=== PATIENT | female | born 1950 | race Caucasian/White ===

== ENCOUNTER 2022-11-06 05:02 | Inpatient (IN) ==
[2022-10-30 16:58] LABS: Basophils # (Auto) 0.07 K/mcL (0.00-0.30); Basophils % (Auto) 0.8 % (0.0-2.0); Eosinophils # (Auto) 0.07 K/mcL (0.00-0.70); Eosinophils % (Auto) 0.8 % (0.0-7.0); Hematocrit 40.7 % (34.1-44.9); Hemoglobin 13.4 g/dL (11.2-15.7); Lymphocytes # (Auto) 1.92 K/mcL (1.50-4.80); Lymphocytes % (Auto) 22.7 % (15.5-49.0); Mean Cell Volume 98.1 fL (80.0-100.0); Mean Corpuscular HGB Conc 32.9 g/dL (31.0-36.0); Mean Platelet Volume 10.7 fL (8.8-12.5); Monocytes # (Auto) 0.66 K/mcL (0.10-0.90); Monocytes % (Auto) 7.8 % (1.0-12.0); Neutrophils % (Auto) 67.5 % (38.0-78.0); Platelet Count 259 K/mcL (140-440); RBC 4.15 M/mcL (3.59-5.38); Red Cell Distribution Width 11.9 % (11.5-14.5); WBC 8.5 K/mcL (4.5-11.0)
[2022-10-30 17:03] LABS: INR 0.9 (0.9-1.1); Prothrombin Time 12.5 sec (11.9-14.5)
[2022-10-30 20:04] LABS: Appearance,Urine CLEAR (Clear); Bilirubin,Urine Negative (Negative); Color,Urine YELLOW; Culture Indicated,Urine No; Glucose,Urine (UA) Negative (Negative); Ketones,Urine 5 mg/dL (Negative); Leukocyte Esterase,Urine 25 /uL (Negative); Nitrate,Urine Negative (Negative); Protein,Urine Negative (Negative); Specific Gravity,Urine 1.017 (1.000-1.035); Urine Blood Negative (Negative); Urine RBC 1 /hpf (0-3); Urine Squamous Epithelial Cell 4 /hpf (0-4); Urine WBC 9 /hpf (0-4); Urobilinogen,Urine Negative
[2022-10-30 20:30] LABS: ALT/SGPT 12 U/L (<40); AST/SGOT 27 U/L (<32); Albumin 4.8 gm/dL (3.2-5.2); Albumin/Globulin Ratio 1.7 (1.0-2.3); Alkaline Phosphatase 75 U/L (39-117); Bilirubin,Total 0.4 mg/dL (0.1-1.0); Blood Urea Nitrogen 17 mg/dL (8-23); Calcium 10.8 mg/dL (8.6-10.4); Carbon Dioxide 23 mmol/L (22-30); Chloride 99 mmol/L (96-108); Globulin 2.8 gm/dL (2.2-3.7); Glomerular Filtration Rate 90; Glucose 85 mg/dL (70-105)
--- NOTE | 2022-11-05 19:07 | EKG ---
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
[~2022-11-06 05:02] MED LIST: 0.9 % SODIUM CHLORIDE 250 ML IV SCH; IPRATROPIUM/ALBUTEROL 3 ML AMPUL.NEB NEB PRN; SCOPOLAMINE 1 PATCH PATCH TOPICAL PRN
[2022-11-06] MEDS ORDERED: ceFAZolin 2 GM in DEXTROSE 5% IN WATER 50 ML IV SCH (06:00)
[2022-11-06] MEDS ORDERED: ONDANSETRON 4 MG/2 ML VIAL ONE (07:30)
[2022-11-06] MEDS ORDERED: ePHEDrine 50 MG/5 ML SYRINGE (ANEST) IV ONE (07:30)
[2022-11-06] MEDS ORDERED: SUCCINYLCHOLINE 20 MG/ML ML IV ONE (07:30)
[2022-11-06] MEDS ORDERED: TRANEXAMIC ACID 1,000 MG/10 ML VIAL ONE (07:30)
[2022-11-06] MEDS ORDERED: KETAMINE 50 MG/ML Syringe (ANEST) IV ONE (07:30)
[2022-11-06] MEDS ORDERED: GLYCOPYRROLATE 0.2 MG/ML VIAL IV ONE (07:30)
[2022-11-06] MEDS ORDERED: MIDAZOLAM 2 MG/2 ML VIAL ONE (07:30)
[2022-11-06] MEDS ORDERED: PHENYLephrine 1 MG/10 ML SYRINGE (ANEST) ONE (07:30)
[2022-11-06] MEDS ORDERED: MAGNESIUM SULFATE 2 GM/50 ML BAG IV ONE (07:30)
[2022-11-06] MEDS ORDERED: fentaNYL 250 MCG/5 ML VIAL IV ONE (07:30)
[2022-11-06] MEDS ORDERED: LIDOCAINE HCL/PF 100 MG/5 ML SYRINGE IV ONE (07:30)
[2022-11-06] MEDS ORDERED: HYDROmorphone 1 MG/ML SYRINGE ONE (07:30)
[2022-11-06] MEDS ORDERED: PROPOFOL 200 MG/20 ML VIAL IV ONE (07:30)
[2022-11-06] MEDS ORDERED: ceFAZolin 2 GM VIAL ONE (07:30)
[2022-11-06] MEDS ORDERED: DEXAMETHASONE 10 MG/ML VIAL ONE (07:30)
[2022-11-06] MEDS ORDERED: THROMBIN (BOVINE) 5,000 UNIT VIAL TOPICAL ONE (10:22)
[2022-11-06] MEDS ORDERED: GELATIN SPONGE,ABSORBABLE 1 EACH SPONGE TOPICAL ONE (12:39)
[2022-11-06] MEDS ORDERED: fentaNYL 100 MCG/2 ML VIAL IV PRN (12:41)
[2022-11-06] MEDS ORDERED: IPRATROPIUM/ALBUTEROL 3 ML AMPUL.NEB NEB PRN (12:41)
[2022-11-06] MEDS ORDERED: MEPERIDINE 25 MG/ML VIAL IV PRN (12:41)
[2022-11-06] MEDS ORDERED: METHOCARBAMOL 1,000 MG/10 ML VIAL IV PRN ×2 (12:41→13:05)
[2022-11-06] MEDS ORDERED: ONDANSETRON 4 MG/2 ML VIAL IV PRN ×2 (12:41→13:05)
[2022-11-06] MEDS ORDERED: ACETAMINOPHEN 1,000 MG/100 ML BAG IV ONE (12:41)
[2022-11-06] MEDS ORDERED: VANCOMYCIN 1 GM VIAL TOPICAL SCH (12:45)
--- NOTE | 2022-11-06 12:45 | XRay Report ---
HISTORY: FINDINGS: IMPRESSION: 1.5 minutes of fluoroscopy time was used. Interpreted and Authenticated by: Bi Anaya 11/06/22
[2022-11-06] MEDS ORDERED: BUPIVACAINE 0.25% 50 ML VIAL IJ ONE (12:53)
--- NOTE | 2022-11-06 13:02 | Brief Operative Note ---
Brief Operative Note Date of procedure: 11/06/22 Pre-op diagnosis: stenosis with instability Post-op diagnosis: same Procedure: xlif with posterior L4-S1 Grafts/Implants: Yes Anesthesia: GETA Findings: stenosis Complications: none Surgeon: Didier Colon Plant Taxonomy Teacher: Walter Xiong Estimated blood loss (cc): 200 Specimens Removed/Pathology: none sent Condition: stable Disposition: PACU
[2022-11-06] MEDS ORDERED: PROMETHAZINE 25 MG/ML VIAL IV PRN (13:05)
[2022-11-06] MEDS ORDERED: ONDANSETRON 4 MG ODT TABLET SL PRN (13:05)
[2022-11-06] MEDS ORDERED: HYDROmorphone 2 MG TABLET PO PRN (13:05)
[2022-11-06] MEDS ORDERED: HYDROmorphone 1 MG/ML SYRINGE IV PRN (13:05)
[2022-11-06] MEDS ORDERED: TESTOSTERONE 100 MG SUB-Q SCH (13:15)
[2022-11-06] MEDS: 0.9 % SODIUM CHLORIDE 1,000 ML IV SCH (14:52)
[2022-11-06] MEDS: 0.9 % SODIUM CHLORIDE 10 ML SYRINGE IV SCH ×2 (14:53→21:02)
[2022-11-06] MEDS ORDERED: ACETAMINOPHEN 500 MG TABLET PO SCH (15:00)
[2022-11-06] MEDS: ceFAZolin 1 GM VIAL IV SCH (15:43)
[2022-11-06] MEDS: ACETAMINOPHEN 325 MG TABLET PO SCH ×2 (16:08→21:04)
[2022-11-06] MEDS: traMADol 50 MG TABLET PO PRN ×2 (16:12→21:13)
[2022-11-06] MEDS: FERROUS GLUCONATE 324 MG TABLET PO SCH (17:27)
[2022-11-06] MEDS ORDERED: IBUPROFEN 200 MG TABLET PO SCH (21:00)
[2022-11-06] MEDS: GABAPENTIN 300 MG CAPSULE PO SCH (21:02)
[2022-11-06] MEDS: SENNOSIDES 1 TABLET PO SCH (21:02)
[2022-11-06] MEDS: DOCUSATE SODIUM 100 MG CAPSULE PO SCH (21:02)
[2022-11-06] MEDS: Progesterone Micronized 200 mg capsule PO SCH (21:07)
[2022-11-07] MEDS: ceFAZolin 1 GM VIAL IV SCH (00:10)
[2022-11-07] MEDS: 0.9 % SODIUM CHLORIDE 1,000 ML IV SCH ×2 (00:11→15:26)
[2022-11-07] MEDS: traMADol 50 MG TABLET PO PRN (03:54)
[2022-11-07] MEDS: BENZOCAINE/MENTHOL 1 LOZENGE PO PRN ×2 (03:59→20:43)
[2022-11-07] MEDS: 0.9 % SODIUM CHLORIDE 10 ML SYRINGE IV SCH ×3 (04:03→20:48)
[2022-11-07 06:35] LABS: Hemoglobin 10.2 g/dL (11.2-15.7)
[2022-11-07 06:57] LABS: Blood Urea Nitrogen 8 mg/dL (8-23); Calcium 9.1 mg/dL (8.6-10.4); Carbon Dioxide 27 mmol/L (22-30); Chloride 106 mmol/L (96-108); Glomerular Filtration Rate 90; Glucose 99 mg/dL (70-105); Hematocrit 31.2 % (34.1-44.9)
--- NOTE | 2022-11-07 07:14 | Operative Note ---
DATE OF OPERATION: 11/06/2022 DATE OF PROCEDURE: 11/06/2022 PREOPERATIVE DIAGNOSIS: Lumbar stenosis with instability, L4-L5, L5-S1; she has a transitional level S1, S2. POSTOPERATIVE DIAGNOSIS: Lumbar stenosis with instability, L4-L5, L5-S1; transitional level S1, S2. OPERATION PROPOSED: 1. Anterior interbody fusion with application of prosthetic device interbody space at L4-5. 2. Lumbar decompression with decompression of central canal, lateral recess, and neural foramen at L4-L5, L5-S1. 3. Posterior segmental instrumentation using a [employer] pedicle screw construct L4 through S1 with connection to the pelvis. 4. Posterior/posterolateral fusion, L4-L5, L5-S1. 5. Application of prosthetic device interbody space and interbody fusion, L5-S1. OPERATION PERFORMED: Same. SURGEON: Didier Colon M.D. BODY FITTER: Walter Xiong PA-C. This providers expertise and technical skill were required throughout the case. The SIMONA assisted with preoperative coordination, intraoperative retraction, wound closure, and dressing and splint application, as well as postoperative documentation and care coordination. INDICATIONS: This is a lady who has had ongoing claudication/radicular symptoms. She has stenosis and instability, L4-L5, L5-S1 and we have elected to proceed with lumbar decompression. OPERATION IN DETAIL: Informed consent was obtained. She was taken to the operating room with appropriate anesthetic and prophylactic antibiotics. She was carefully positioned. Her left flank was prepped sterilely. A standard retroperitoneal approach to the L4-5 interspace was performed. I advanced through the psoas using an EMG monitor trocar. I sequentially dilated and placed a self-retaining retractor. I incised the annulus. I extensively curetted the disc space and debrided down to subchondral bone. I then used a variety of trials and selected a 10 x 45 x 22 XLIF cage from [employer]. I then impacted this cage into the site prepared for it. The patient was repositioned. A midline incision was made. I dissected down to expose spinous process and lamina L4 through S1. I removed the inferior one-half of the spinous process lamina of L4, the central portion of L5, the superior portion of S1. I debrided the hypertrophied medial border of the facet joint as well as the hypertrophied ligamentum flavum. At the end of the decompression, the central canal, lateral recess, and opening the neural foramen were very adequately patent L4 through S1. Pedicle screws were placed at L4, L5, S1 bilaterally. I placed a left sided S2AI screw but because of our operative table and the position of our fluoroscopy, we were unable to visualize well the right side. I elected to simply place this on one side as a prophylaxis against a sacral fracture. I then formed the application for the prosthetic device interbody space and interbody fusion. This was done by mobilizing the nerve root towards the midline. I extensively curetted the disc space, debrided down to subchondral bone, filled the disc space with morselized bone graft and placed an expandable cage L5-S1. Attention was then turned to the posterior and posterolateral aspect of the spine where it decorticated the posterolateral aspect of the spine. I packed morcellized graft into and against the decorticated posterolateral aspect of the spine to allow for fusion. The procedure was completed by compressing across the interbody graft and tightened and torqued the sally into the top-loading pedicle screws. The wounds were closed over a deep drain with an 0 Vicryl in interrupted fashion, 2-0 Vicryl inverted deep dermal and running subcuticular. Procedure was tolerated well. No complications. ESTIMATED BLOOD LOSS: 200 mL. GDD:ria Job ID: [id number] Doc ID: [id number] Didier Colon MD
[2022-11-07] MEDS ORDERED: KETOROLAC 15 MG/ML VIAL IV SCH (07:45)
--- NOTE | 2022-11-07 07:46 | General Surgery Progress Note ---
SUBJECTIVE Subjective Patient information: Note initiated : 11/07/22 at 7:42 am Service Date, if different from initiated Date: [] Patient: Vicky Sandoval 72 y/o F admitted on 11/06/22 for Extreme Lateral Interbody Fusion L4-5 with. Chief Complaint: [] Principal diagnosis: lumbar instability Interval history: no new issues Constitutional Vitals: Vital Signs Temp Pulse Resp BP Pulse Ox O2 Del Method O2 Flow Rate 97.5 F 81 18 118/64 100 Room Air 4 11/07/22 04:12 11/07/22 04:12 11/07/22 04:12 11/07/22 04:12 11/07/22 04:12 11/07/22 04:12 11/06/22 13:39 Period Temp Pulse Resp BP Sys/Byrd Pulse Ox O2 Del Method O2 Flow Rate Last 24 Hr 96.8 F-98.4 F 59-100 9-19 96-144/44-102 91-100 Nasal Cannula- Room Air 4-10 Intake and Output 11/06/22 11/07/22 11/07/22 19:59 03:59 11:59 Intake Total 2345 1060 Output Total 038 350 6054 Balance 1495 -125 -1710 Weight 114 lb 4 oz Intake & Output: Intake & Output 11/06/22 11/07/22 11/07/22 19:59 03:59 11:59 Intake Total 2345 1060 Output Total 885 387 6202 Balance 1495 -125 -1710 Weight 114 lb 4 oz Intake: IV 445 Sodium Chloride 0.9% 1,000 ml @ 345 100 mls/hr IV .Q10H [facility] Rx#: [id number] Oral 1060 IV - Manual Only 1900 Output: Drainage 125 35 Lower Back ROCIO Drain 125 35 Drainage 50 35 Lower Back ROCIO Drain 50 35 Urine Catheter Amount 300 Void Amount 300 2700 Estimated Blood Loss 200 Other: Meal Dinner Percent of Meal Consumed 10 Urine Appearance Clear Clear Urine Color Dark Yellow Pale Urine Odor Strong Normal Extremities Exam Extremities exam: Present neurovascular intact A/P Assessment and plan (1) Lumbar spondylosis: Plan: mobilize Status: Chronic Comment: post fusion (2) Lumbar radiculopathy: Status: Chronic Sepsis Sepsis Identified: No Narrative A/P Narrative: no acute issues post fusion Plan of Treatment: mbilize Time Spent With Patient Time: Total time spent is greater than 50% in coordination of care (as documented) at patient's floor/unit and/or counseling patient: Subsequent: Total time with patient: Less than 25 minutes Critical Care Time: No
[2022-11-07] MEDS ORDERED: IBUPROFEN 200 MG TABLET PO PRN (07:57)
[2022-11-07] MEDS ORDERED: GLUCOSAM CHON MSM1 C MANG BOSW PO SCH (09:00)
[2022-11-07] MEDS: ACETAMINOPHEN 325 MG TABLET PO SCH ×3 (09:14→20:44)
[2022-11-07] MEDS: valACYclovir 500 MG TABLET PO SCH (09:15)
[2022-11-07] MEDS: ESTRADIOL 1 MG TABLET PO SCH (09:15)
[2022-11-07] MEDS: METHOCARBAMOL 750 MG TABLET PO SCH ×3 (09:16→20:43)
[2022-11-07] MEDS: DOCUSATE SODIUM 100 MG CAPSULE PO SCH ×2 (09:16→20:44)
[2022-11-07] MEDS: LOSARTAN 50 MG TABLET PO SCH (09:16)
[2022-11-07] MEDS: FERROUS GLUCONATE 324 MG TABLET PO SCH (15:26)
[2022-11-07] MEDS ORDERED: IRON PO SCH (17:00)
[2022-11-07] MEDS: Progesterone Micronized 200 mg capsule PO SCH ×2 (19:52→20:47)
[2022-11-07] MEDS: GABAPENTIN 300 MG CAPSULE PO SCH (20:43)
[2022-11-07] MEDS: SENNOSIDES 1 TABLET PO SCH (20:47)
[2022-11-08] MEDS: METHOCARBAMOL 750 MG TABLET PO SCH ×2 (03:24→09:00)
[2022-11-08] MEDS: traMADol 50 MG TABLET PO PRN ×2 (03:32→07:30)
[2022-11-08] MEDS: 0.9 % SODIUM CHLORIDE 10 ML SYRINGE IV SCH (04:04)
--- NOTE | 2022-11-08 07:03 | Discharge Summary ---
Discharge Provider Provider IMPORTANT FOLLOW-UP INFORMATION FOR PCP: Patient information: Note initiated : 11/08/22 at 7:01 am Service Date, if different from initiated Date: [] Patient: Vicky Sandoval 72 y/o F admitted on 11/06/22 for Extreme Lateral Interbody Fusion L4-5 with. Chief Complaint: [] Date of admission: 11/06/22 05:02 Discharge date: 11/08/22 Primary care physician: Eduard Church Admitting clinician: Didier Colon COURSE Hospital Course Hospital course: lumbar fusion A and P- uneventful Discharge diagnosis: stenosis with instability Procedures: lumbar fusion Time Spent with Patient Time attestation: Total time spent providing and/or coordinating discharge services: Time spent: Greater than 30 minutes Physical Examination Exam Clean and dry: Yes Discharge Instructions - Spine Patient Instructions Spine Protocol: Limit bending and stooping. No heavy lifting. Wear brace/collar at all times except when showering and sleeping. Additional Dressing Instructions: May Shower 48 hours post-operative and replace with dry dressing after shower. Discharge Plan Patient/Caregiver Discharge Instructions Activity: ambulate only with your walker and increase activity as tolerated Diet: Regular Diet Prescriptions: New tramadol 50 mg Tablet 50 mg PO Q4-6HP PRN (Reason: Pain) Qty: 50 0RF methocarbamol 750 mg Tablet 750 mg PO Q6H 30 Days Qty: 120 0RF No Action losartan 100 mg tablet 100 mg PO QDAY 90 Days Qty: 90 3RF progesterone micronized 200 mg capsule 200 mg PO QHS Qty: 90 1RF gabapentin 300 mg capsule 300 mg PO QHS Qty: 30 0RF tramadol 50 mg tablet 50 mg PO Q4-6H PRN (Reason: pain) Qty: 30 0RF Patient Comments: PT DOES NOT TAKE THIS MEDICATION. acyclovir 400 mg tablet 400 mg PO QDAY ibuprofen 200 mg tablet 400 mg PO BID Patient Comments: HOLDING FOR SURGERY acetaminophen 500 mg Tablet 650 mg PO TID ferrous gluconate 324 mg (38 mg iron) Tablet 324 mg PO BIDCC Osteo Bi-Flex Triple Strength 750 mg-644 mg- 30 mg-1 mg Tablet 3 tab PO DAILY estradiol 1 mg tablet 2 mg PO QDAY testosterone 100 mg Pellet 100 mg SUBCUT ONCE Patient Comments: EVERY 3 MONTHS Rx Instructions: as a single dose Follow Up Plan Follow up with: Didier Colon MD [Physician] - 11/23/22 9:10 am Patient Disposition: Home, Self-Care Plan of Treatment: juvenal Overall status at discharge: patient is progressing back to baseline Discharge Orders: Discharge Order (Routine); Ordered 11/08/22 Ordered By: Didier Colon Pending Pending Pending: Resuscitation Status Resuscitate (Full Code) Diet Regular Diet Start SunNovember 06 130 Acetaminophen (Acetaminophen 325 Mg Tablet) 650 mg PO TID [facility]; Protocol Last Admin: 11/07/22 20:44 Dose: 650 mg Documented By: Admin: 11/07/22 15:30 Dose: 650 mg Documented By: Admin: 11/07/22 09:14 Dose: 650 mg Documented By: Admin: 11/06/22 21:04 Dose: 650 mg Documented By: Admin: 11/06/22 16:08 Dose: 650 mg Documented By: SANDRA Docusate Sodium (Docusate Sodium 100 Mg Capsule) 100 mg PO BID [facility] Last Admin: 11/07/22 20:44 Dose: 100 mg Documented By: Admin: 11/07/22 09:16 Dose: 100 mg Documented By: Admin: 11/06/22 21:02 Dose: 100 mg Documented By: DEBBI Estradiol (Estradiol 1 Mg Tablet) 2 mg PO QDAY [facility] Last Admin: 11/07/22 09:15 Dose: 2 mg Documented By: AMANDA Gabapentin (Gabapentin 300 Mg Capsule) 300 mg PO QHS [facility] Last Admin: 11/07/22 20:43 Dose: 300 mg Documented By: Admin: 11/06/22 21:02 Dose: 300 mg Documented By: DEBBI Losartan Potassium (Losartan 50 Mg Tablet) 100 mg PO DAILY [facility] Last Admin: 11/07/22 09:16 Dose: 100 mg Documented By: AMANDA Methocarbamol (Methocarbamol 750 Mg Tablet) 750 mg PO Q6H [facility] Last Admin: 11/08/22 03:24 Dose: 750 mg Documented By: Admin: 11/07/22 20:43 Dose: 750 mg Documented By: Admin: 11/07/22 15:31 Dose: 750 mg Documented By: Admin: 11/07/22 09:16 Dose: 750 mg Documented By: AMANDA Progesterone Micronized 200 Mg Capsule 1 dose PO QHS [facility] Last Admin: 11/07/22 20:47 Dose: 1 dose Documented By: Admin: 11/06/22 21:07 Dose: Not Given Documented By: DEBBI Iron 22mg 1 dose PO 1700 [facility] Last Admin: 11/07/22 18:48 Dose: 1 dose Documented By: DEBBI Senna (Sennosides 1 Tablet) 2 tab PO HS [facility] Last Admin: 11/07/22 20:47 Dose: Not Given Documented By: Admin: 11/06/22 21:02 Dose: 2 tab Documented By: DEBBI Sodium Chloride (0.9 % Sodium Chloride 10 Ml Syringe) 10 ml IV Q8 [facility] Last Admin: 11/08/22 04:04 Dose: Not Given Documented By: Admin: 11/07/22 20:48 Dose: 10 ml Documented By: Admin: 11/07/22 18:20 Dose: 10 ml Documented By: Admin: 11/07/22 04:03 Dose: 10 ml Documented By: Admin: 11/06/22 21:02 Dose: 10 ml Documented By: Admin: 11/06/22 14:53 Dose: Not Given Documented By: SANDRA Throat Lozenges (Benzocaine/Menthol 1 Lozenge) 1 lozenge PO PRN PRN PRN Reason: Sore Throat Last Admin: 11/07/22 20:43 Dose: 1 lozenge Documented By: Admin: 11/07/22 03:59 Dose: 1 lozenge Documented By: DEBBI Tramadol HCl (Tramadol 50 Mg Tablet) 50 mg PO Q4-6HP PRN PRN Reason: Pain Last Admin: 11/08/22 03:32 Dose: 50 mg Documented By: Admin: 11/07/22 03:54 Dose: 50 mg Documented By: Admin: 11/06/22 21:13 Dose: 50 mg Documented By: Admin: 11/06/22 16:12 Dose: 50 mg Documented By: SANDRA Valacyclovir HCl (Valacyclovir 500 Mg Tablet) 500 mg PO QDAY [facility] Last Admin: 11/07/22 09:15 Dose: 500 mg Documented By: [email or web address] Shift Summary 11/08/22 04:37 Shift Summary by Collette Marie Primary Diagnosis: Lateral L4-L5 Fusion Registration Status: Date of Surgery (if applicable): 11/06- Dr. Colon Pertinent Medical Dx/Issue(s): HTN; OA; spinal stenosis; anxiety/depression; former smoker Med management (antibiotics, diuretics, BP): Gabapentin; liquid iron and PO progesterone tabs (both home meds in the tower) Skin/Wound Care: Dressings to evangelina lower back and midline back incision C/D/I; ROCIO drain output: 5mls serosanguinous fluid. Dressings to be replaced with dry dressings on days 11/08. Vital Signs with Trends: VSS on RA Pain management (acute vs. chronic): PRN Tramadol x2; schedule PO Tylenol and Robaxin Lab/Rad (abnormal, trends): AM labs drawn, results pending; 11/07- Hgb: 10.2; Hct: 31.2 Neuro/Mental Status: Alert and oriented x4; pleasant and cooperative Urinary Elimination Device: BSC Urinary output greater than 30mL/hr? Yes Date of last BM: 11/05- per pt Lines/Tubes: RFA removed as it was causing pain and some redness; Pt does not want another IV placed and pt does not have any scheduled IV meds at this time. Activity: Up 1p assist with FWW/GB Recommendations/questions for MD: Discharge Plan (needs, disposition, etc): TBD Initialized on 11/08/22 04:37 - END OF NOTE
[2022-11-08 07:17] LABS: Hematocrit 28.9 % (34.1-44.9); Hemoglobin 9.4 g/dL (11.2-15.7)
[2022-11-08] MEDS: ACETAMINOPHEN 325 MG TABLET PO SCH (07:30)
[2022-11-08] MEDS: BENZOCAINE/MENTHOL 1 LOZENGE PO PRN (07:31)
[2022-11-08] MEDS: DOCUSATE SODIUM 100 MG CAPSULE PO SCH (09:00)
[2022-11-08] MEDS: LOSARTAN 50 MG TABLET PO SCH (09:00)
[2022-11-08] MEDS: ESTRADIOL 1 MG TABLET PO SCH (09:00)
[2022-11-08] MEDS: valACYclovir 500 MG TABLET PO SCH (09:00)
== END 2022-11-08 12:00 | disposition home or self-care (01) | DRG 455 ==
LOC: MEDSUR 05:02 → EDSTATUS 07:30
PROVIDERS: ADMIT Orthopaedic Surgery Orthopaedic Surgery of the Spine; ATTEND Orthopaedic Surgery Orthopaedic Surgery of the Spine